=== PATIENT | male | born 2000 | race American Indian/Alaskan Native ===

== ENCOUNTER 2019-03-10 10:07 | Emergency (ER) | payer OTHER ==
[2019-03-10 10:17] VITALS: BP 148/59
[2019-03-10] MEDS ORDERED: TORADOL IM ONE (10:46)
--- NOTE | 2019-03-10 11:02 | Emergency Department Report ---
ED Extremity Problem HPI - General Chief complaint: Extremity Injury, Lower Stated complaint: RT HAMSTRING PULLED/PAIN Time Seen by Provider: 03/10/19 10:34 Source: patient Mode of arrival: Ambulatory Limitations: No Limitations - History of Present Illness Initial comments: 19-year-old male with no subcutaneous past medical history presents to the hosp [facility] complaining of pain to his right hamstring while performing exercises with training. Patient was pulling on a pound weight running backwards where his right foot slipped lateral causing lateral movement his foot and medial movement of his knee. Patient had immediate hamstring pain. He continues to try to finish exercises but has pain with lateral movement drills. Patient is unable to bear complete weight secondary to pain. He has not taken any medications prior to arrival. Severity scale (0 -10): 5 - Related Data Previous Rx's Medication Instructions Recorded Last Taken Type Ibuprofen [Motrin] 800 mg PO Q8HR PRN #30 tablet 03/10/19 Unknown Rx traMADol [Ultram 50 MG tab] 50 mg PO Q6HR PRN #14 tablet 03/10/19 Unknown Rx Allergies Allergy/AdvReac Type Severity Reaction Status Date / Time No Known Allergies Allergy Unverified 03/10/19 10:08 ED Review of Systems ROS: Stated complaint: RT HAMSTRING PULLED/PAIN Other details as noted in HPI Comment: All other systems reviewed and negative ED Past Medical Hx - Past Medical History Previous Medical History?: No - Surgical History Past Surgical History?: No - Social History Smoking Status: Never Smoker Substance Use Type: Alcohol - Medications Home Medications: Home Medications Medication Instructions Recorded Confirmed Last Taken Type Ibuprofen [Motrin] 800 mg PO Q8HR PRN #30 tablet 03/10/19 Unknown Rx traMADol [Ultram 50 MG tab] 50 mg PO Q6HR PRN #14 tablet 03/10/19 Unknown Rx ED Physical Exam - General Limitations: No Limitations - Other Other exam information: Gen.: No acute distress Head: Atraumatic Eyes: Normal appearance ENT: Moist mucous membranes Neck: Normal appearance Chest: Clear to auscultation bilaterally Cardiovascular: Regular rate and rhythm Abdomen: Normal appearance, soft, nontender, no rebound or guarding, normal bowel sounds Back: Normal appearance, nontender Extremity: Full range of motion, patient able to extend and flex knee fully and extend the hip. She has tenderness to palpation along hamstring without swelling, warmth, or deformity. Patient has not had any isolated patella or fibular tenderness on knee exam. Full range of motion of right hip. Unable to bear weight without pain to hamstring area. Neuro: Alert, clear speech, no focal motor or sensory deficit Psychiatric: Appropriate Skin: No rash ED Course Vital Signs 03/10/19 10:15 Temperature 97.6 F Pulse Rate 79 Respiratory 16 Rate Blood Pressure 148/59 O2 Sat by Pulse 95 Oximetry ED Medical Decision Making - Medical Decision Making She has isolated pain and tenderness to right hamstring after slip injury. Presents with hamstring strain. Provided Toradol and crutches. He is on duty medical form was filled out as requested. - Differential Diagnosis muscle strain, rhabdomyolysis Critical Care Time: No Critical care attestation.: If time is entered above; I have spent that time in minutes in the direct care of this critically ill patient, excluding procedure time. ED Disposition Clinical Impression: Hamstring strain Qualifiers: Encounter type: initial encounter Laterality: right Qualified Code(s): S76.311A - Strain of muscle, fascia and tendon of the posterior muscle group at thigh level, right thigh, initial encounter Disposition: - TO HOME OR SELFCARE Is pt being admited?: No Does the pt Need Aspirin: No Condition: Stable Instructions: Hamstring Injury (ED) Additional Instructions: Take the medication as prescribed. Follow-up with your doctor or with the doctor/clinic provided. Return if symptoms worsen as indicated by your discharge instructions. Prescriptions: Ibuprofen [Motrin] 800 mg PO Q8HR PRN #30 tablet PRN Reason: Pain, Moderate (4-6) traMADol [Ultram 50 MG tab] 50 mg PO Q6HR PRN #14 tablet PRN Reason: Pain , Severe (7-10) Referrals: SAMARA FANG MD [Staff Physician] - 3-5 Days (Orthopedic doctor) Time of Disposition: 11:06
== END 2019-03-10 11:34 | disposition home or self-care (01) ==
LOC: ED 10:07
DX: S76.311A Strain of muscle, fascia and tendon of the posterior muscle group at thigh level, right thigh, initial encounter (principal); W01.0XXA Fall on same level from slipping, tripping and stumbling without subsequent striking against object, initial encounter; Y93.89 Activity, other specified; Y92.89 Other specified places as the place of occurrence of the external cause; Y99.8 Other external cause status
CPT/HCPCS: 96372; 99283; J1885